=== PATIENT | male | born 1960 | race Caucasian/White ===

== ENCOUNTER 2021-06-12 11:59 | Emergency (ER) | payer BC ==
[2021-06-12 12:10] VITALS: BP 162/82; PULSE 93
[2021-06-12] MEDS ORDERED: Ondansetron 4 MG/2 ML SDV IVPUSH ONE (12:19)
[2021-06-12] MEDS ORDERED: Sodium Chloride 0.9% 10 ML Syringe FLUSH PRN (12:19)
[2021-06-12] MEDS ORDERED: Famotidine 20 MG/2 ML SDV IVPUSH ONE (12:20)
[2021-06-12] MEDS ORDERED: Sodium Chloride 0.9% 1,000 ML IV SCH (12:30)
== END 2021-06-12 14:15 | disposition home or self-care (01) ==
LOC: JD.ED 11:59
DX: R07.89 Other chest pain (principal); A08.4 Viral intestinal infection, unspecified; E78.00 Pure hypercholesterolemia, unspecified; I10 Essential (primary) hypertension; E11.9 Type 2 diabetes mellitus without complications; Z79.4 Long term (current) use of insulin; Z79.899 Other long term (current) drug therapy
CPT/HCPCS: 36415; 71045; 80053; 83690; 84484; 85025; 85379; 86140; 93005; 96374; 96375; 99285; J2405; J3490; J7030

== ENCOUNTER 2021-06-24 16:57 | Inpatient (IN) | payer BC ==
[2021-06-24] MEDS ORDERED: Ondansetron 4 MG/2 ML SDV IVPUSH ONE (17:59)
[2021-06-24] MEDS ORDERED: HYDROmorphone 1 MG/ML Syringe IVPUSH STA (17:59)
[2021-06-24] MEDS ORDERED: Sodium Chloride 0.9% 10 ML Syringe FLUSH PRN ×2 (17:59→18:24)
[2021-06-24] MEDS ORDERED: Sodium Chloride 0.9% 1,000 ML IV SCH (18:00)
[2021-06-24] MEDS ORDERED: Iopamidol 612 MG/ML 100 ML Bottle IVPUSH ONE (18:24)
[2021-06-24] MEDS ORDERED: cefTRIAXone 2 GM in Sodium Chloride 0.9% 100 ML IV ONE (20:46)
[2021-06-24] MEDS ORDERED: Sodium Chloride 0.9% 1,000 ML IV ONE (21:57)
[2021-06-24] MEDS: Acetaminophen 325 MG Tab PO PRN (22:59)
[2021-06-24] MEDS: HYDROmorphone 0.5 MG/0.5 ML Syringe IVPUSH PRN (23:03)
[2021-06-25] MEDS: HYDROmorphone 0.5 MG/0.5 ML Syringe IVPUSH PRN ×5 (04:40→23:33)
[2021-06-25] MEDS ORDERED: Temazepam 7.5 MG Cap PO PRN (06:34)
[2021-06-25] MEDS ORDERED: Ondansetron 4 MG Tab.DIS PO PRN (06:34)
[2021-06-25] MEDS: Enoxaparin 40 MG/0.4 ML Syringe SUBCUT SCH (08:15)
[2021-06-25] MEDS: atorvaSTATin 20 MG Tab PO SCH (08:18)
[2021-06-25] MEDS: Pantoprazole 40 MG Tab.CR PO SCH (08:18)
[2021-06-25] MEDS: metFORMIN 500 MG Tab PO SCH ×3 (08:18→18:23)
[2021-06-25 08:44] LABS: HEMOGLOBIN A1C 7.6 %
[2021-06-25] MEDS ORDERED: Insulin Glargine,Human Rec. Analog 100 Units/ML 3 ML Pen SUBCUT SCH (09:00)
[2021-06-25] MEDS: Insulin Regular, Human 100 Units/ML 3 ML Vial SUBCUT SCH ×3 (09:02→18:58)
[2021-06-25] MEDS: Acetaminophen 325 MG Tab PO PRN (11:01)
[2021-06-25] MEDS: Ondansetron 4 MG/2 ML SDV IVPUSH PRN ×2 (12:20→17:30)
[2021-06-25] MEDS: Enalapril 5 MG Tab PO SCH (17:05)
[2021-06-25] MEDS: Aspirin 81 MG Tab.EC PO SCH (17:08)
[2021-06-25] MEDS ORDERED: 50% Dextrose in Water 50 ML Syringe ONE (17:20)
[2021-06-25] MEDS: oxyCODONE 5 MG Tab PO PRN (17:20)
[2021-06-25] MEDS ORDERED: 50% Dextrose in Water 50 ML Syringe IVPUSH PRN (17:22)
[2021-06-25] MEDS: Docusate Sodium 100 MG Cap PO PRN (17:26)
[2021-06-25] MEDS ORDERED: Dextrose 5 %-0.2 % NaCl 1,000 ML IV SCH ×2 (17:45→18:00)
[2021-06-25] MEDS: cefTRIAXone 2 GM in Sodium Chloride 0.9% 100 ML IV SCH (20:12)
[2021-06-25] MEDS: Latanoprost 0.005% Ophth Soln 2.5 ML Bottle EYEBOTH SCH (20:12)
[2021-06-26] MEDS: HYDROmorphone 0.5 MG/0.5 ML Syringe IVPUSH PRN (05:07)
[2021-06-26] MEDS: Pantoprazole 40 MG Tab.CR PO SCH (06:17)
[2021-06-26] MEDS: metFORMIN 500 MG Tab PO SCH ×2 (06:35→17:42)
[2021-06-26] MEDS: Enoxaparin 40 MG/0.4 ML Syringe SUBCUT SCH (08:31)
[2021-06-26] MEDS: atorvaSTATin 20 MG Tab PO SCH (08:31)
[2021-06-26] MEDS: Insulin Regular, Human 100 Units/ML 3 ML Vial SUBCUT SCH ×4 (10:49→18:24)
[2021-06-26] MEDS: Insulin Glargine,Human Rec. Analog 100 Units/ML 3 ML Pen SUBCUT SCH ×2 (10:50→20:11)
[2021-06-26] MEDS: oxyCODONE 5 MG Tab PO PRN ×3 (11:21→20:25)
[2021-06-26] MEDS: Docusate Sodium 100 MG Cap PO PRN (15:53)
[2021-06-26] MEDS: Enalapril 5 MG Tab PO SCH (17:41)
[2021-06-26] MEDS: Aspirin 81 MG Tab.EC PO SCH (17:42)
[2021-06-26] MEDS: Latanoprost 0.005% Ophth Soln 2.5 ML Bottle EYEBOTH SCH (20:11)
[2021-06-26] MEDS: cefTRIAXone 2 GM in Sodium Chloride 0.9% 100 ML IV SCH (20:11)
[2021-06-27] MEDS: Pantoprazole 40 MG Tab.CR PO SCH (06:08)
[2021-06-27] MEDS: metFORMIN 500 MG Tab PO SCH ×2 (06:58→17:36)
[2021-06-27] MEDS: Insulin Regular, Human 100 Units/ML 3 ML Vial SUBCUT SCH ×3 (09:19→18:03)
[2021-06-27] MEDS: Enoxaparin 40 MG/0.4 ML Syringe SUBCUT SCH (09:23)
[2021-06-27] MEDS: atorvaSTATin 20 MG Tab PO SCH (09:23)
[2021-06-27] MEDS: Insulin Glargine,Human Rec. Analog 100 Units/ML 3 ML Pen SUBCUT SCH ×2 (09:30→20:17)
[2021-06-27] MEDS: Aspirin 81 MG Tab.EC PO SCH (17:36)
[2021-06-27] MEDS: Enalapril 5 MG Tab PO SCH (17:36)
[2021-06-27] MEDS: Acetaminophen 325 MG Tab PO PRN (20:16)
[2021-06-27] MEDS: Latanoprost 0.005% Ophth Soln 2.5 ML Bottle EYEBOTH SCH (20:17)
[2021-06-27] MEDS: cefTRIAXone 2 GM in Sodium Chloride 0.9% 100 ML IV SCH (20:18)
[2021-06-28] MEDS: Pantoprazole 40 MG Tab.CR PO SCH (06:35)
[2021-06-28] MEDS: metFORMIN 500 MG Tab PO SCH (06:35)
[2021-06-28] MEDS: Insulin Regular, Human 100 Units/ML 3 ML Vial SUBCUT SCH (08:18)
[2021-06-28 08:25] VITALS: BP 142/76; PULSE 61
[2021-06-28] MEDS: atorvaSTATin 20 MG Tab PO SCH (08:36)
[2021-06-28] MEDS: Enoxaparin 40 MG/0.4 ML Syringe SUBCUT SCH (08:37)
[2021-06-28] MEDS: Insulin Glargine,Human Rec. Analog 100 Units/ML 3 ML Pen SUBCUT SCH (09:04)
[2021-06-28] MEDS: Docusate Sodium 100 MG Cap PO PRN (09:26)
[2021-06-28] MEDS ORDERED: Levofloxacin 500 MG Tab PO SCH (20:00)
== END 2021-06-28 11:29 | disposition home or self-care (01) | DRG 720 ==
LOC: JD.ED 16:57 → JD.ICU 22:17 → OBSVTOIN 06-25 11:24
PROVIDERS: ADMIT Internal Medicine; ATTEND Internal Medicine
DX: A41.9 Sepsis, unspecified organism (principal); N10 Acute pyelonephritis; E11.9 Type 2 diabetes mellitus without complications; R33.9 Retention of urine, unspecified; K80.20 Calculus of gallbladder without cholecystitis without obstruction; E78.5 Hyperlipidemia, unspecified; I10 Essential (primary) hypertension; K59.09 Other constipation; Z96.1 Presence of intraocular lens; Z96.0 Presence of urogenital implants; Z20.822 Contact with and (suspected) exposure to COVID-19; Z86.16 Personal history of COVID-19; Z98.42 Cataract extraction status, left eye; Z79.899 Other long term (current) drug therapy; Z79.82 Long term (current) use of aspirin; Z79.4 Long term (current) use of insulin; Z87.448 Personal history of other diseases of urinary system; Z98.41 Cataract extraction status, right eye
CPT/HCPCS: 36415; 74177; 74177-26; 76705; 76705-26; 80053; 81001; 82947; 82977; 83036; 83605; 83690; 85025; 86140; 87040; 87086; 87088; 87186; 96361; 96365; 96372; 96375; 96376; 99284; 99285-25; A9270-GY; G0378; J0696; J1170; J1650; J1815-GY; J2405; J3490; J7030; J7042; Q9967; U0002

== ENCOUNTER 2023-01-15 04:24 | Emergency (ER) | payer BC ==
[2023-01-15 05:26] LABS: BASOPHILS PERCENT AUTO 0.2 % (0.0-1.0); EOSINOPHILS ABSOLUTE AUTO 0.1 K/mm3 (0.0-0.4); EOSINOPHILS PERCENT AUTO 0.9 % (0.0-6.0); HEMATOCRIT 51.1 % (42.0-52.0); HEMOGLOBIN 17.4 gm/dl (14.0-18.0); IMMATURE GRAN ABSOLUTE AUTO 0.03 K/mm3 (0.00-0.05); IMMATURE GRAN PERCENT AUTO 0.3 % (0.0-0.4); LYMPHOCYTES ABSOLUTE AUTO 0.6 K/mm3 (1.0-4.8); LYMPHOCYTES PERCENT AUTO 7.1 % (24.0-44.0); MEAN CORPUSCULAR HEMOGLOBIN 31.5 pg (28.0-32.0); MEAN CORPUSCULAR HGB CONC 34.1 g/dl (32.0-36.0); MEAN CORPUSCULAR VOLUME 92.4 fl (83.0-99.0); MEAN PLATELET VOLUME 9.3 fl (9.4-12.4); MONOCYTES ABSOLUTE AUTO 0.6 K/mm3 (0.0-0.8); MONOCYTES PERCENT AUTO 6.9 % (0.0-8.0); NEUTROPHILS ABSOLUTE AUTO 7.6 K/mm3 (1.8-7.7); NEUTROPHILS PERCENT AUTO 84.6 % (41.0-71.0); PLATELET COUNT,PLT 213 K/mm3 (150-400); RED BLOOD CELL COUNT 5.53 M/mm3 (4.52-5.90); WHITE BLOOD CELL COUNT,WBC 9.01 K/mm3 (3.9-11.3)
[2023-01-15] MEDS ORDERED: Ondansetron 4 MG/2 ML SDV IVPUSH ONE (05:36)
[2023-01-15] MEDS ORDERED: Naloxone 0.4 MG/ML SDV IVPUSH PRN (05:36)
[2023-01-15] MEDS ORDERED: Morphine 4 MG/ML Syringe IVPUSH ONE (05:36)
[2023-01-15 05:52] LABS: APPEARANCE,URINE SLT CLOUDY (Clear); BILIRUBIN,URINE NEGATIVE (Negative); COLOR,URINE YELLOW (Yellow); GLUCOSE,URINE 2+ (Negative); KETONES,URINE 2+ (Negative); LEUKOCYTE ESTERASE,URINE TRACE (Negative); NITRITE,URINE POSITIVE (Negative); OCCULT BLOOD,URINE NEGATIVE (Negative); PH,URINE 7.5 (5.0-8.0); PROTEIN,URINE 1+ (Negative); UROBILINOGEN,URINE 0.2 (0.2-1.0)
[2023-01-15 06:02] LABS: EPITHELIAL CELLS,URINE 0-5 /hpf (0-5); RBC,URINE NOT SEEN /hpf (0-5); WBC,URINE 20-30 /hpf (0-5)
[2023-01-15 06:02] LABS: ALBUMIN 3.7 g/dl (3.4-5.0); ANION GAP 14.7 (5-15); BILIRUBIN TOTAL 0.7 mg/dL (0.2-1.0); BUN/CREATININE RATIO 16.4 (14-18); CALCIUM 8.8 mg/dL (8.5-10.1); CREATININE 1.1 mg/dL (0.7-1.3); EST CRCL DRUG DOSING (CG) 75.44 mL/min; POTASSIUM,K 3.7 mEq/L (3.5-5.1); PROTEIN TOTAL,TP 7.3 g/dl (6.4-8.2)
[2023-01-15 06:03] LABS: BACTERIA,URINE MANY /hpf (FEW); WBC CLUMPS,URINE FEW /hpf (NOT SEEN)
[2023-01-15 06:04] LABS: MUCUS,URINE NOT SEEN /hpf (FEW)
[2023-01-15] MEDS ORDERED: cefTRIAXone 1 GM in Sodium Chloride 0.9% 100 ML IV ONE (06:57)
[2023-01-15 07:55] VITALS: BP 128/63; PULSE 92
== END 2023-01-15 07:54 | disposition home or self-care (01) ==
LOC: JD.ED 04:24
DX: N30.00 Acute cystitis without hematuria (principal); I10 Essential (primary) hypertension; E11.9 Type 2 diabetes mellitus without complications; E78.00 Pure hypercholesterolemia, unspecified; Z79.84 Long term (current) use of oral hypoglycemic drugs; Z79.899 Other long term (current) drug therapy; Z79.82 Long term (current) use of aspirin; Z86.16 Personal history of COVID-19
CPT/HCPCS: 36415; 80053; 81001; 85025; 96365; 96375; 99283; J0696; J2270; J2405; J3490; 99284